=== PATIENT | female | born 1990 | race Caucasian/White ===

== ENCOUNTER 2023-09-20 04:49 | Emergency (ER) | payer OTHER, SELFPAY ==
[2023-09-20 04:54] VITALS: BP 153/93; PULSE 85; RESP 16; TEMP 37; O2SAT 98; BMI 21.1
--- NOTE | 2023-09-20 05:07 | ED_ITS ---
HPI - Abdominal Pain General Chief Complaint: Abdominal Pain Stated Complaint: ABD PAIN Time Seen by Provider: 09/20/23 05:02 Source: patient Mode of arrival: walk-in Limitations: no limitations History of Present Illness HPI narrative: ill for past 3 days. [place] it was food poisoning. Started as abdominal cramping. Then nausea that has persisted and she has not been able to eat except for crackers. Has not vomited. This AM episode of diarrhea and when she wiped she noticed blood and decided to come in. MD elicited complaint: Reports abdominal pain Related Data Home Medications Medication Instructions Recorded Confirmed No Known Home Medications 09/20/23 09/20/23 Allergies Allergy/AdvReac Type Severity Reaction Status Date / Time No Known Drug Allergies Allergy Verified 09/20/23 04:59 Review of Systems ROS Status of ROS 10 or more systems reviewed and unremark able except as noted in history and below [facility] Social History Smoking status: Never smoker Exam Constitutional Vital Signs, click to edit/add: Last Vital Signs Temp 98.9 F 09/20/23 06:47 Pulse 67 09/20/23 06:47 Resp 16 09/20/23 06:47 BP 110/60 09/20/23 06:47 Pulse Ox 98 09/20/23 06:47 O2 Del Method Room Air 09/20/23 06:47 Common normals: no apparent distress, average body habitus, oriented x3, no limitations, healthy appearing, alert and well nourished [facility] Common normals: normocephalic and head/scalp atraumatic Eye Common normals: EOMs intact bilaterally and conjunctivae normal Respiratory Common normals: normal respiratory effort, no retractions, no use of accessory muscles and clear to auscultation bilaterally Cardio Common normals: regular rate, regular rhythm, S1 normal heart sound and S2 normal heart sound GI Common normals: Normal to inspection, nondistended, normoactive bowel sounds present, soft to palpation and non-tender Extremity Common normals: normal to inspection and full ROM Neuro Common normals: oriented x3, CN's II-XII intact bilaterally, moves all extremities and no focal motor deficits Psych Appearance: grossly normal Course Vital Signs Vital signs: Vital Signs Temperature 98.6 F 09/20/23 04:54 Pulse Rate 85 09/20/23 04:54 Respiratory Rate 16 09/20/23 04:54 Blood Pressure 153/93 H 09/20/23 04:54 Pulse Oximetry 98 09/20/23 04:54 Oxygen Delivery Method Room Air 09/20/23 04:54 Temperature 98.9 F 09/20/23 06:47 Pulse Rate 67 09/20/23 06:47 Respiratory Rate 16 09/20/23 06:47 Blood Pressure 110/60 09/20/23 06:47 Pulse Oximetry 98 09/20/23 06:47 Oxygen Delivery Method Room Air 09/20/23 06:47 MDM - Abdominal Pain MDM Narrative Medical decision making narrative: patient presents with nausea and abdominal cramping for past 3 days. Only able to eat crackers. She felt she had food poisoning after eating out at a Restaurant. this AM she had an episode of diarrhea. When she wiped she noticed blood. She feels weak. still has some cramping. IV hydration and zofran ordered. Cipro ordered for possible infectious diarrhea. CT ordered and results pending CT results return neg. Patient not able to provide stool sample. She is feeling better after hydration and zofran. Will plan discharged home with working diagnosis of infectious diarrhea. Prescription for cipro and zofran Lab Data Labs: Lab Results 09/20/23 09/20/23 09/20/23 Range/Units 05:00 05:08 05:25 WBC 5.4 (4.0-11.0) 10^3/uL RBC 5.25 (4.20-5.40) 10^6/uL Hgb 14.8 (12.0-16.0) g/dL Hct 44.5 (36.0-48.0) % MCV 84.8 (81.0-99.0) fL MCH 28.2 (26.7-34.0) pg MCHC 33.3 (29.9-35.2) g/dL RDW 12.1 (11.0-15.0) % Plt Count 215 (150-450) 10^3/uL MPV 10.4 (9.5-13.5) fL Neut % (Auto) 62.9 (43.0-75.0) % Lymph % (Auto) 23.7 (20.5-60.0) % [place] % (Auto) 9.2 (1.7-12.0) % Eos % (Auto) 3.4 (0.9-7.0) % Baso % (Auto) 0.4 (0.2-2.0) % Neut # (Auto) 3.4 (1.4-6.5) 10^3/uL Lymph # (Auto) 1.3 (1.2-3.8) 10^3/uL [place] # (Auto) 0.5 (0.3-0.8) 10^3/uL Eos # (Auto) 0.2 (0.0-0.7) 10^3/uL Baso # (Auto) 0.0 (0.0-0.1) 10^3/uL Abs Immat Gran (auto) 0.02 (0.00-0.03) 10^3/uL Imm/Tot Granulo (auto) 0.4 (0.0-0.5) % Sodium 138 (136-145) mmol/L Potassium 3.2 L (3.5-5.1) mmol/L Chloride 104 (98-107) mmol/L Carbon Dioxide 26.1 (21.0-32.0) mmol/L Anion Gap 11.1 BUN 9.0 (7.0-18.0) mg/dL Creatinine 1.05 H (0.55-1.02) mg/dL Est GFR ( Amer) >60 (>=60) Est GFR (Non-Af Amer) >60 (>=60) BUN/Creatinine Ratio 8.6 Glucose 97 (74-106) mg/dL Lactate 1.2 (0.4-2.0) mmol/L Calcium 8.3 L (8.5-10.1) mg/dL Total Bilirubin 0.3 (0.2-1.0) mg/dL AST 11 L (15-37) U/L ALT 13 L (14-59) U/L Alkaline Phosphatase 58 (46-116) U/L Total Protein 7.1 (6.4-8.2) g/dL Albumin 3.4 (3.4-5.0) g/dL Globulin 3.7 g/dL Albumin/Globulin Ratio 0.9 Lipase 23.0 (16.0-77.0) U/L Urine Color Yellow (YELLOW) Urine Clarity Clear (CLEAR) Urine pH 5.5 (5.0-9.0) Ur Specific [place] 1.020 (1.005-1.025) Urine Protein Negative (NEG/TRACE) mg/dL Urine Glucose (UA) Negative (NEGATIVE) mg/dL Urine Ketones 15 A (NEGATIVE) mg/dL Urine Occult Blood Negative (NEGATIVE) Urine Nitrite Negative (NEGATIVE) Urine Bilirubin Small A (NEGATIVE) Urine Urobilinogen 0.2 (0.2-1.0) EU/dL Ur Leukocyte Esterase Negative (NEGATIVE) Urine HCG, Qual Negative (NEGATIVE) Imaging Data Chest x-ray: Radiologist's impression: ITS Impressions Abdomen/Pelvis CT 09/20/23 05:12 IMPRESSION: 1. No acute or specific findings to account for patient's symptoms. 2. Collapsing follicle/cyst within left ovary of questionable clinical significance. Electronically authenticated by: ERMA MARY Date: 09/20/2023 06:45 CT scan - abdomen: Radiologist's impression: ITS Impressions Abdomen/Pelvis CT 09/20/23 05:12 IMPRESSION: 1. No acute or specific findings to account for patient's symptoms. 2. Collapsing follicle/cyst within left ovary of questionable clinical significance. Electronically authenticated by: ERMA MARY Date: 09/20/2023 06:45 Discharge Plan Discharge Chief Complaint: Abdominal Pain Clinical Impression: Acute infectious diarrhea Patient Disposition: Home, Self-Care Prescriptions / Home Meds: No Action No Known Home Medications Instructions: Gastroenteritis (ED) Additional Instructions: follow up with your doctor for recheck in a couple of days Stand Alone Forms: Portal Instructions Referrals: Physician,Non-Staff, MD [Primary Care Provider] - 1 week
--- NOTE | 2023-09-20 05:12 | CT_ITS ---
[address] [address] Patient Name: RUTH MORALES MRN: [id number] date: 1990 Sex: F Assigned Patient Location: ER Current Patient Location: Accession/Order Number: [id number] Exam Date: 09/20/2023 06:20 Report Date: 09/20/2023 06:45 At the request of: MALA HERNANDEZ Procedure: CT abdomen pelvis w con EXAMINATION: CT abdomen pelvis w con HISTORY: abdominal pain COMPARISON: No relevant comparison available. TECHNIQUE: Axial, Coronal, and Sagittal images were obtained without and/or with IV contrast as indicated by examination type. Dose reduction techniques were achieved by using automated exposure control and/or adjustment of mA and/or kV according to patient size and/or use of iterative reconstruction technique. FINDINGS: LUNG BASES: No visible pulmonary or pleural disease. LIVER: No enlargement, atrophy, suspicious density, or significant focal lesion. BILIARY: No dilatation or calcification. PANCREAS: No lesion, fluid collection, or abnormal duct dilatation. SPLEEN: No enlargement or focal lesion. ADRENALS: No mass or enlargement. KIDNEYS: No mass, obstruction, or calcification. BOWEL/MESENTERY: No visible mass, obstruction, or bowel wall thickening. AORTA/VASCULAR: No aneurysm or dissection. RETROPERITONEUM: No mass or adenopathy. LYMPH NODES: No adenopathy. URINARY BLADDER: No visible focal wall thickening, lesion, or calculus. PELVIC ORGANS: 1.6 cm rim-enhancing collapsing cyst within left ovary. No visible mass. Pelvic organs appropriate for patient age. ABDOMINAL WALL: No mass or hernia. BONES: No bony lesion or fracture. OTHER: Negative. CT/CT abdomen pelvis w con IMPRESSION: 1. No acute or specific findings to account for patient's symptoms. 2. Collapsing follicle/cyst within left ovary of questionable clinical significance. Electronically authenticated by: ERMA MARY Date: 09/20/2023 06:45
[2023-09-20 05:19] LABS: Basophils Percent Auto 0.4 % (0.2-2.0); Eosinophils Absolute Auto 0.2 10^3/uL (0.0-0.7); Eosinophils Percent Auto 3.4 % (0.9-7.0); Hematocrit 44.5 % (36.0-48.0); Hemoglobin 14.8 g/dL (12.0-16.0); Immature Granulocytes Abs Auto 0.02 10^3/uL (0.00-0.03); Immature Granulocytes Pct Auto 0.4 % (0.0-0.5); Lymphocytes Absolute Auto 1.3 10^3/uL (1.2-3.8); Lymphocytes Percent Auto 23.7 % (20.5-60.0); Mean Corpuscular HGB Conc 33.3 g/dL (29.9-35.2); Mean Corpuscular Hemoglobin 28.2 pg (26.7-34.0); Mean Corpuscular Volume 84.8 fL (81.0-99.0); Mean Platelet Volume 10.4 fL (9.5-13.5); Monocytes Absolute Auto 0.5 10^3/uL (0.3-0.8); Monocytes Percent Auto 9.2 % (1.7-12.0); Neutrophils Absolute Auto 3.4 10^3/uL (1.4-6.5); Neutrophils Percent Auto 62.9 % (43.0-75.0); Platelet Count 215 10^3/uL (150-450); Red Blood Count 5.25 10^6/uL (4.20-5.40); Red Cell Distribution Width 12.1 % (11.0-15.0); White Blood Count 5.4 10^3/uL (4.0-11.0)
[2023-09-20 05:20] VITALS: BP 122/70
[2023-09-20 05:33] LABS: Bilirubin Urine SMALL (NEGATIVE); Blood Urine NEGATIVE (NEGATIVE); Clarity Urine CLEAR (CLEAR); Color Urine YELLOW (YELLOW); Glucose Urine UA NEGATIVE (NEGATIVE); Ketones Urine 15 mg/dL (NEGATIVE); Leukocyte Esterase Urine NEGATIVE (NEGATIVE); Nitrite Urine NEGATIVE (NEGATIVE); Protein Urine NEGATIVE (NEG/TRACE); Urobilinogen Urine 0.2 EU/dL (0.2-1.0); pH Urine 5.5 (5.0-9.0)
[2023-09-20 05:34] LABS: HCG Qualitative Urine* NEGATIVE (NEGATIVE)
[2023-09-20 05:41] LABS: Urine Microscopic Indicated NO
[2023-09-20] MEDS: 0.9 % SODIUM CHLORIDE 1,000 ML 999 ML IV (05:45)
[2023-09-20] MEDS: ONDANSETRON PF 4 MG/2 ML VIAL IV (05:46)
[2023-09-20 05:55] LABS: Alanine Aminotransferase 13 U/L (14-59); Albumin Globulin Ratio 0.9; Albumin Level 3.4 g/dL (3.4-5.0); Alkaline Phosphatase 58 U/L (46-116); Anion Gap 11.1; Aspartate Amino Transferase 11 U/L (15-37); BUN Creatinine Ratio 8.6; Bilirubin Total 0.3 mg/dL (0.2-1.0); Calcium 8.3 mg/dL (8.5-10.1); Carbon Dioxide 26.1 mmol/L (21.0-32.0); Chloride 104 mmol/L (98-107); Estimated GFR (African America >60 (>=60); Estimated GFR (Non-African Ame >60 (>=60); Globulin 3.7 g/dL; Glucose 97 mg/dL (74-106); Potassium 3.2 mmol/L (3.5-5.1); Sodium 138 mmol/L (136-145); Total Protein 7.1 g/dL (6.4-8.2)
[2023-09-20 05:57] LABS: Lactate/Lactic Acid 1.2 mmol/L (0.4-2.0)
[2023-09-20 06:47] VITALS: BP 110/60; PULSE 67; RESP 16; TEMP 37.2; O2SAT 98
[2023-09-20] MEDS: CIPROFLOXACIN IN 5 % DEXTROSE 400 MG/200 ML PIGGYBACK 200 MG IV (06:56)
[2023-09-20 07:08] VITALS: BP 111/79; PULSE 69; RESP 16; O2SAT 100
[2023-09-20 08:16] VITALS: BP 106/67; PULSE 62; RESP 20; TEMP 37.2; O2SAT 99
[2023-09-20 15:12] LABS: C. Difficile PCR NEGATIVE (NEGATIVE)
== END 2023-09-20 08:25 | disposition home or self-care (01) ==
PROVIDERS: Emergency Provider Internal Medicine
DX: A09 Infectious gastroenteritis and colitis, unspecified (principal); T80.89XA Other complications following infusion, transfusion and therapeutic injection, initial encounter
CPT/HCPCS: 36415; 74177; 80053; 81003; 83605; 83690; 84703; 85025; 87045; 87046; 87427; 87493; 96361; 96374; 96375; 99285; J0744; J2405; Q9967